=== PATIENT | female | born 1945 | race Caucasian/White ===

== ENCOUNTER 2018-11-21 16:02 | Emergency (ER) | payer OTHER ==
[~2018-11-21] VITALS: Ht 162.6 cm; Wt 104.0 kg
[~2018-11-21 16:02] MED LIST: AMLO-511 PO; ASPI-1182 PO; CLOP75TA3 PO; DSS100 PO; FLUT16H NASAL; GABA-531 PO; GLIM2 PO; KETO5DRO6 OU; METF-960 PO; METO25XL PO; OMEP20 PO; SITA100 PO; VITAD1000 PO
[2018-11-21 16:30] LABS: GLUCOSE,POINT OF CARE 116 MG/DL (70-110)
[2018-11-21] MEDS ORDERED: [UNRECOGNIZED DRUG - CODE] PO (16:38)
[2018-11-21] MEDS ORDERED: NITR.6 SL (16:38)
[2018-11-21] MEDS ORDERED: OXYB5 PO (16:38)
[2018-11-21] MEDS ORDERED: METF-445 PO (16:38)
[2018-11-21] MEDS ORDERED: ALBU8.5H8 IH (16:38)
[2018-11-21] MEDS ORDERED: PANT20TA12 PO (16:38)
[2018-11-21] MEDS ORDERED: FLUT16H NASAL (16:38)
[2018-11-21 16:47] LABS: BASOPHILS % (AUTO) 1.3 % (0.0-2.0); EOSINOPHILS % (AUTO) 3.7 % (1.0-6.0); HEMATOCRIT 38.8 % (36-46); HEMOGLOBIN 12.5 g/dL (12.0-16.0); LYMPHOCYTES # (AUTO) 2.1 K/uL (1.0-4.8); LYMPHOCYTES % (AUTO) 26.8 % (22.0-44.0); MEAN CORPUSCULAR HEMOGLOBIN 26.1 pg (26.0-34.0); MEAN CORPUSCULAR HGB CONC 32.3 G/dL (31.0-37.0); MEAN CORPUSCULAR VOLUME 81 fL (80-100); MONOCYTES # (AUTO) 0.7 K/uL (0.1-1.0); MONOCYTES % (AUTO) 8.9 % (2.0-9.0); NEUTROPHILS # (AUTO) 4.7 K/uL (1.8-7.7); NEUTROPHILS % (AUTO) 59.3 % (40.0-70.0); PLATELET COUNT (AUTO) 167 K/uL (150-450); RED BLOOD CELL COUNT(AUTO) 4.81 MIL/uL (4.00-5.20); RED CELL DISTRIBUTION WIDTH 16.3 % (11.5-14.5)
[2018-11-21 17:02] LABS: ANION GAP 7 mmol/L (8-16); CALCIUM, TOTAL 9.5 mg/dL (8.8-10.5); CARBON DIOXIDE 28 mmol/L (22-29); CHLORIDE 104 mmol/L (98-107); CREATININE 0.82 mg/dL (0.60-1.30); GLUCOSE,RANDOM 143 mg/dL (70-110); POTASSIUM 4.6 mmol/L (3.5-5.1); SODIUM SERUM 139 mmol/L (136-145); UREA NITROGEN, BLOOD 14 mg/dL (7-18)
[2018-11-21 17:07] LABS: GLOMERULAR FILTR. RATE CALC > 60 mL/min (>60)
[2018-11-21 17:08] LABS: ALANINE AMINOTRANSFERASE 15 U/L (12-78); ALBUMIN 3.6 g/dL (3.4-5.0); ALKALINE PHOSPHATASE 109 U/L (46-116); ASPARTATE AMINOTRANSFERASE 15 U/L (15-37); BILIRUBIN,TOTAL 0.4 mg/dL (0.1-1.0); LIPASE 110 U/L (73-393); TOTAL PROTEIN, SERUM 8.1 g/dL (6.4-8.2)
[2018-11-21 20:10] LABS: APPEARANCE,URINE CLEAR (CLEAR); BILIRUBIN,URINE NEGATIVE (NEGATIVE); GLUCOSE, URINE (UA) NEGATIVE (NEGATIVE); KETONES,URINE NEGATIVE (NEGATIVE); LEUKOCYTE ESTERASE ,URINE MODERATE (NEGATIVE); NITRATE,URINE NEGATIVE (NEGATIVE); OCCULT BLOOD,URINE NEGATIVE (NEGATIVE); PH,URINE 6.5 (5.0-8.0); PROTEIN,URINE NEGATIVE (NEGATIVE); UROBILINOGEN,URINE 0.2 mg/dL (<=1.0)
[2018-11-21 20:35] LABS: RBC,URINE None Seen /HPF (0-2)
[2018-11-21 20:36] LABS: BACTERIA,URINE Rare /HPF (None Seen); SQUAMOUS EPITHELIAL CELL,UR Moderate /LPF (None Seen)
[2018-11-21 21:37] VITALS: BP 121/80
== END 2018-11-21 21:47 | disposition home or self-care (01) ==
LOC: EMS 16:05
DX: R10.12 Left upper quadrant pain (principal); E11.9 Type 2 diabetes mellitus without complications; I10 Essential (primary) hypertension; M19.90 Unspecified osteoarthritis, unspecified site; Z79.84 Long term (current) use of oral hypoglycemic drugs; Z79.82 Long term (current) use of aspirin
CPT/HCPCS: 74176; 87086; 93005

== ENCOUNTER → 2021-10-07 | Emergency (ER) | payer OTHER ==
[~2021-10-07] VITALS: Ht 154.9 cm; Wt 103.0 kg
[~2021-10-07] MED LIST changes: +ALBU8.5H8 IH; +AMLO-257 PO; -AMLO-511 PO; +AMOX1TAB16 PO; -ASPI-1182 PO; +ASPI-1444 PO; +CHOL100018 PO; -CLOP75TA3 PO; +CLOP75TA60 PO; +GABA-1181 PO; -GABA-531 PO; +MAG-150 PO; +METF-445 PO; -METF-960 PO; +NITR0.6T11 SL; -OMEP20 PO; +OXYB5TAB20 PO; +PANT20TA18 PO; +PHENYLEPHRINE HCL 0.5% 15 ML NASAL SPRAY NASAL ONE; -VITAD1000 PO
[2021-10-07 07:54] VITALS: BP 140/75
[2021-10-07 08:50] LABS: APPEARANCE,URINE HAZY (CLEAR); BILIRUBIN,URINE NEGATIVE (NEGATIVE); GLUCOSE, URINE (UA) NEGATIVE (NEGATIVE); KETONES,URINE NEGATIVE (NEGATIVE); LEUKOCYTE ESTERASE ,URINE LARGE (NEGATIVE); NITRATE,URINE NEGATIVE (NEGATIVE); OCCULT BLOOD,URINE SMALL (NEGATIVE); PROTEIN,URINE NEGATIVE (NEGATIVE); SPECIFIC GRAVITIY, URINE 1.008 (1.003-1.030); UROBILINOGEN,URINE <=1.0 mg/dL (<=1.0)
[2021-10-07 09:04] LABS: BACTERIA,URINE Few /HPF (None Seen); SQUAMOUS EPITHELIAL CELL,UR Moderate /LPF (None Seen); WBC,URINE 26-50 /HPF (0-5)
== END | disposition home or self-care (01) ==
LOC: EMS 07:14
DX: R04.0 Epistaxis (principal); I10 Essential (primary) hypertension; E11.9 Type 2 diabetes mellitus without complications; Z79.899 Other long term (current) drug therapy; Z79.84 Long term (current) use of oral hypoglycemic drugs
CPT/HCPCS: 30901; 81001; 87086; 99282; 99284; Z7502; Z7610

== ENCOUNTER 2021-10-09 14:03 | Emergency (ER) | payer MEDICARE, OTHER ==
[~2021-10-09] VITALS: Ht 152.4 cm; Wt 103.0 kg
[~2021-10-09 14:03] MED LIST changes: -AMOX1TAB16 PO; -PHENYLEPHRINE HCL 0.5% 15 ML NASAL SPRAY NASAL ONE
[2021-10-09 14:28] VITALS: BP 157/90
[2021-10-09] MEDS ORDERED: AMOX1TAB16 PO (15:18)
== END 2021-10-09 15:28 | disposition home or self-care (01) ==
LOC: EMS 14:03
DX: R04.0 Epistaxis (principal); E11.9 Type 2 diabetes mellitus without complications; I10 Essential (primary) hypertension; Z79.84 Long term (current) use of oral hypoglycemic drugs
CPT/HCPCS: 99283; Z7502

== ENCOUNTER 2025-05-28 18:36 | Emergency (ER) | payer MEDICARE, OTHER ==
[~2025-05-28] VITALS: Ht 152.4 cm; Wt 97.0 kg
[~2025-05-28 18:36] MED LIST changes: +AMOX-457 PO; -CLOP75TA60 PO; +CLOP75TA83 PO; -FLUT16H NASAL; +FLUT16SP NASAL; -GLIM2 PO; +GLIM2TAB35 PO; +KETO-99 OU; -KETO5DRO6 OU
[2025-05-28] MEDS ORDERED: ATOR20TA PO (18:56)
[2025-05-28] MEDS ORDERED: OXYB-34 PO (18:56)
[2025-05-28] MEDS ORDERED: METF-81 PO (18:56)
[2025-05-28] MEDS ORDERED: CALC-1275 PO (18:56)
[2025-05-28] MEDS ORDERED: GABA-1216 PO (18:56)
[2025-05-28] MEDS ORDERED: LOSA-381 PO (18:56)
[2025-05-28 19:38] LABS: PLATELET COUNT (AUTO) 183 K/uL (150-450); RED BLOOD CELL COUNT(AUTO) 5.08 MIL/uL (4.00-5.20); RED CELL DISTRIBUTION WIDTH 16.8 % (11.5-14.5); WHITE BLOOD COUNT (AUTO) 7.8 K/uL (4.5-11.0)
[2025-05-28 19:49] LABS: ASPARTATE AMINOTRANSFERASE 18.0 U/L (15-37); TOTAL PROTEIN, SERUM 8.3 g/dL (6.4-8.2)
[2025-05-28 20:01] LABS: CALCIUM, TOTAL 9.6 mg/dL (8.8-10.5); CREATININE 0.68 mg/dL (0.60-1.30); GLOMERULAR FILTR. RATE CALC > 60 mL/min (>60); GLUCOSE,RANDOM 171 mg/dL (70-110); SODIUM SERUM 141 mmol/L (136-145); UREA NITROGEN, BLOOD 18 mg/dL (7-18)
[2025-05-28 20:09] LABS: TROPONIN I-HIGH SENSITIVITY 7 ng/L (<51)
[2025-05-28] MEDS ORDERED: ACETAMINOPHEN 325 MG TABLET ONE (22:36)
[2025-05-28] MEDS ORDERED: IBUPROFEN 600 MG TABLET ONE (22:37)
[2025-05-28 22:43] VITALS: BP 132/76; PULSE 71; RESP 18; TEMP 97.3; O2SAT 96
== END 2025-05-28 23:06 | disposition home or self-care (01) ==
LOC: EMS 18:36
DX: I10 Essential (primary) hypertension (principal); E11.9 Type 2 diabetes mellitus without complications; E78.00 Pure hypercholesterolemia, unspecified; M19.90 Unspecified osteoarthritis, unspecified site; R42 Dizziness and giddiness; Z79.02 Long term (current) use of antithrombotics/antiplatelets; Z86.15 Personal history of latent tuberculosis infection; Z79.82 Long term (current) use of aspirin; Z87.19 Personal history of other diseases of the digestive system; Z79.899 Other long term (current) drug therapy
CPT/HCPCS: 71045; 80048; 80076; 82962; 84484; 85025; 85610; 85730; 93005; 99285; 36415-L1; 36415-TC